=== PATIENT | male | born 1980 | race Caucasian/White ===

== ENCOUNTER → 2017-04-02 10:36 | Outpatient (CLI) | payer MEDICARE | END | disposition home or self-care (01) | LOC: D.MRI 04-01 11:00 → D.CT 04-01 11:30 → D.RAD 04-01 13:00 → D.MRI 10:36 | DX: G93.2 Benign intracranial hypertension (principal); I87.1 Compression of vein; R13.10 Dysphagia, unspecified ==

== ENCOUNTER 2018-04-30 17:12 | Inpatient (IN) | payer MEDICARE ==
[~2018-04-30] VITALS: Ht 182.9 cm; Wt 79.3 kg
--- NOTE | ~2018-04-30 | CN ---
PATIENT NAME:RETA BLUM MEDICAL RECORD: [id number] : 84 LOCATION:[facility].2308 ADMIT DATE: 04/30/18 ACCOUNT: [id number] CONSULTING PHYSICIAN: PETAR BRICENO MD REFERRING PHYSICIAN: JOSE BAXTER MD DATE OF CONSULTATION: 05/01/2018 IDENTIFYING DATA: The patient is 37 years old and he presented to the hospital with polysubstance overdose including OxyContin, Xanax, and methadone. He currently is intubated. I will return tomorrow or the day once he is extubated, and awake and alert enough to speak with me. Given the circumstances, I suspect he is going to require some sort of treatment on an inpatient basis when he leaves here. It is unclear if it needs to be substance abuse and/or mental health. I will evaluate the patient once he is extubated and alert and awake enough for me to evaluate him. TRANSINT:[id number] Voice Confirmation ID: [id number] DOCUMENT ID: [id number] PETAR BRICENO MD at 0926 CC: [id number] DICTATION DATE: 05/01/18 1143 ATOMIC WELDER: 05/01/18 1150 ADM IN [facility] [address] [place] [address]
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
--- NOTE | ~2018-04-30 | MORECARE ---
CASE MANAGEMENT DISCHARGE SUMMARY PATIENT: RETA BLUM UNIT: [id number] ADM DATE: 04/30/18 AGE: 37 : [birth year] SEX: M ROOM/BED: D.2308 AUTHOR: CATHERINE LAWTON PHYSICIAN: REFERRING PHYSICIAN: JOSE BAXTER MD DATE OF SERVICE: 05/05/18 Discharge Plan Patient Name: RETA BLUM Facility: [facility]:[place] : 1980 Planned Disposition: Anticipated Discharge Date: Discharge Date: 05/04/2018 Expected LOS: Initial Reviewer: [email or web address] Initial Review Date: 04/30/2018 Generated: 05/05/18 4:39 pm Comments DCP- Discharge Planning Updated by [email or web address]: Nu Shaw on 05/04/18 10:[address] Patient Name: RETA BLUM Admission Status: ER Accout number: [id number] Admission Date: 04-30-2018 : 1980 Admission Diagnosis: Attending: JOSE BAXTER Current LOS: 4 Anticipated DC Date: Planned Disposition: Primary Insurance: MEDICARE A & B Discharge Planning Comments: CM notified that patient was medically stable for inpatient psychiatric facility. CM spoke with patient regarding transfer to inpatient psychiatric facility. He agrees to go to inpatient facility. CM contacted transfer center for placement and faxed over packet. CM will continue to follow and assist with patient discharge planning / needs. Adapted Physical Education Specialist: Nu Shaw Last DP export: 05/04/18 10:26 Patient Name: RETA BLUM Page [id number] at 1539 All edits/amendments must be made on the electronic document DICTATION DATE: 05/05/18 1539 CRIME SPECIALIST: ANGE 05/05/18 1539 RPT#: [id number] DC DATE:05/04/18 STATUS: DIS IN [facility] [address] [place] [address] END OF REPORT
--- NOTE | ~2018-04-30 | CN ---
PATIENT NAME:RETA MOROCHO MEDICAL RECORD: [id number] : 84 LOCATION:[facility].2308 ADMIT DATE: 04/30/18 ACCOUNT: [id number] CONSULTING PHYSICIAN: EMILIE FIGUEROA MD REFERRING PHYSICIAN: MISTY BAXTER MD DATE OF CONSULTATION: 05/01/2018 CONSULT REQUESTING PHYSICIAN: Misty Baxter MD REASON FOR CONSULTATION: Vent management. HISTORY OF PRESENT ILLNESS: Mr. Morocho is a 37-year-old gentleman, now he is orally intubated and sedated. The patient has taken multidrug overdose. He was given multiple doses of Narcan almost up to 3.4 mg, but the patient was still obtunded, and the patient was electively intubated in the ER for airway protection. REVIEW OF SYSTEMS: As in history of present illness. PAST MEDICAL HISTORY: 1. Yosi-Danlos syndrome. 2. Chronic pain syndrome. 3. Anxiety, depression. 4. Migraine headache. ALLERGIES: No allergy information available. MEDICATIONS: [employer] Analysis is reviewed. PERSONAL AND SOCIAL HISTORY: The detail is not obtainable. FAMILY HISTORY: Not obtainable. PHYSICAL EXAMINATION: GENERAL: Now the patient is orally intubated and sedated. VITAL SIGNS: The blood pressure is 102/68, pulse is 58, respiration 14, temperature 98. SpO2 of 97% on assist control mechanical ventilation, FIO2 of 30, rate of 14. HEENT: Conjunctivae are pink. Sclerae not icteric. NECK: Supple. No JVD. CHEST: The chest excursion is minimal on both sides. There is no wheeze, no rales. HEART: Rhythm regular, normal sound, no murmur. ABDOMEN: Abdomen is soft. Bowel sounds present. No hepatosplenomegaly. RECTAL: Deferred. EXTREMITIES: No cyanosis, no clubbing, no pedal edema. SKIN: The skin is warm, normal turgor. CENTRAL NERVOUS SYSTEM: The patient is orally intubated and sedated. CHEST RADIOGRAPH: The ET tube is in good position. There is no infiltrate. OTHER LABORATORY DATA: CBC: The WBC is 6.8, hemoglobin 11.6, hematocrit 35.1, the platelet count is 185. Chemistry: Sodium 144, potassium 3.6, bicarb is 21.8, BUN is 12, creatinine 0.9. ABG: The pH is 7.39, pCO2 is 44.2, the pO2 was 42. This was done on assist control, rate of 14, PEEP of 5, tidal volume CONSULT REPORT [id number] RETA MOROCHO 600, and 50% oxygen. IMPRESSION: 1. Acute respiratory failure. 2. Multidrug overdose. 3. Suicidal attempt. 4. Depression. 5. History of chronic pain. 6. History of Yosi-Danlos syndrome. RECOMMENDATION: 1. We will continue mechanical ventilation. 2. Adjust the setting. 3. DVT and GI bleed, ulcer prevention. 4. Follow up labs and chest radiograph to watch for any VAP or aspiration pneumonia. 5. Psychiatric consult. We will extubate when the patient is stable. Dr. Baxter, thank you for involving me in the care of Mr. Morocho. TRANSINT:[id number] Voice Confirmation ID: [id number] DOCUMENT ID: [id number] EMILIE FIGUEROA MD CC: [id number] DICTATION DATE: 05/01/18 1223 REGROOVER: 05/01/18 1250 ADM IN [place] [id number] [place] [id number]
--- NOTE | ~2018-04-30 | MORECARE ---
CASE MANAGEMENT DISCHARGE SUMMARY PATIENT: RETA BLUM UNIT: [id number] ADM DATE: 04/30/18 AGE: 37 : 84 SEX: M ROOM/BED: D.2308 AUTHOR: CATHERINE LAWTON PHYSICIAN: REFERRING PHYSICIAN: JOSE BAXTER MD DATE OF SERVICE: 05/04/18 Discharge Plan Patient Name: RETA BLUM Facility: [facility]:[place] : 1980 Planned Disposition: Anticipated Discharge Date: Discharge Date: Expected LOS: Initial Reviewer: [email or web address] Initial Review Date: 04/30/2018 Generated: 05/04/18 12:25 pm Comments DCP- Discharge Planning Updated by [email or web address]: Nu Shaw on 05/04/18 10:[address] Patient Name: RETA BLUM Admission Status: ER Accout number: [id number] Admission Date: 04-30-2018 : 1980 Admission Diagnosis: Attending: JOSE BAXTER Current LOS: 4 Anticipated DC Date: Planned Disposition: Primary Insurance: MEDICARE A & B Discharge Planning Comments: CM notified that patient was medically stable for inpatient psychiatric facility. CM spoke with patient regarding transfer to inpatient psychiatric facility. He agrees to go to inpatient facility. CM contacted transfer center for placement and faxed over packet. CM will continue to follow and assist with patient discharge planning / needs. Inspector Hot Forgings: Nu Shaw External Providers External Provider: [facility] Next Contact Date: Service Request Date: Service Type: Resolution: Reviewer: Comments: Patient Name: RETA BLUM Page [phone] at 1126 All edits/amendments must be made on the electronic document DICTATION DATE: 05/04/18 112 STATISTICAL SECRETARY: ANGE 05/04/18 112 RPT#: [id number] DC DATE: STATUS: ADM IN [facility] [address] [place] [address] END OF REPORT
[2018-04-30] MEDS ORDERED: REMERON30 MG PO (17:16)
[2018-04-30] MEDS ORDERED: BUTRANS1 EAC2 TRANSDERM (17:17)
[2018-04-30] MEDS ORDERED: TRINTELLIX20 MG PO (17:18)
[2018-04-30] MEDS ORDERED: ZOFRAN8 MG PO (17:18)
[2018-04-30] MEDS ORDERED: ROXICODONE15 MG PO (17:19)
[2018-04-30] MEDS ORDERED: XANAX1 MG PO (17:30)
[2018-04-30] MEDS ORDERED: BACLOFEN20 M1 PO (17:32)
[2018-04-30] MEDS ORDERED: CLARITIN 10 MG10 MG PO (17:32)
[2018-04-30 18:09] LABS: BASOPHILS 0.3 % (0-2); EOSINOPHILS 0.9 % (0-7); HEMOGLOBIN 13.3 g/dL (13.5-17.5); IMMATURE GRANULOCYTES 0.2 % (0-5); LYMPHOCYTES 31.4 % (15-50); MCH 30.6 pg (26.0-34.0); MCHC 33.3 g/dL (31.0-37.0); MEAN PLATELET VOLUME 10.7 fL (7.4-10.4); MONOCYTES 6.4 % (2-11); NEUTROPHILS 60.8 % (40-80); PLATELET COUNT 213 10x3/uL (130-400); RBC 4.35 10x6/uL (4.20-6.10); RDW 14.1 % (11.5-14.5); WBC 9.6 10x3/uL (4.8-10.8)
[2018-04-30 18:34] LABS: APPEARANCE CLEAR (CLEAR); COLOR YELLOW (YELLOW); SPECIFIC GRAVITY 1.005 (1.005-1.020)
[2018-04-30 18:35] LABS: BILIRUBIN NEGATIVE (NEGATIVE); GLUCOSE NEGATIVE (NEGATIVE); KETONE NEGATIVE (NEGATIVE); NITRITE NEGATIVE (NEGATIVE); PROTEIN NEGATIVE (NEGATIVE); UROBILINOGEN NORMAL (NORMAL)
[2018-04-30 18:49] LABS: UDS - AMPHET NEGATIVE QUAL (NEGATIVE); UDS - BARB NEGATIVE QUAL (NEGATIVE); UDS - BENZO POSITIVE QUAL (NEGATIVE); UDS - COCAINE NEGATIVE QUAL (NEGATIVE); UDS - OPIATE POSITIVE QUAL (NEGATIVE); UDS - PCP NEGATIVE QUAL (NEGATIVE); UDS - THC NEGATIVE QUAL (NEGATIVE)
[2018-04-30 18:50] LABS: ALBUMIN 3.5 g/dL (3.4-5.0); ALKALINE PHOSPHATASE 121 U/L (46-116); ALT (SGPT) 27 U/L (10-68); BILIRUBIN - TOTAL 0.33 mg/dL (0.2-1.3); CALC OSMOLALITY 282 mosm/kg (275-300); CALCIUM 8.5 mg/dL (8.5-10.1); CARBON DIOXIDE 29.7 mmol/L (21.0-32.0); CHLORIDE - SERUM 106 mmol/L (98-107); CREATININE - SERUM 1.2 mg/dL (0.6-1.3); GLUCOSE 90 mg/dL (74-106); POTASSIUM - SERUM 3.9 mmol/L (3.5-5.1); PROTEIN - SERUM 7.1 g/dL (6.4-8.2); SODIUM 142 mmol/L (136-145); UREA NITROGEN 13 mg/dL (7-18); eGFR NON AFRICAN AMERICAN 73 mL/min (90-120)
[2018-04-30 19:00] VITALS: BP 96/58
[2018-04-30 19:03] LABS: CKMB 1.2 U/L (0.0-3.6); CREATINE KINASE 97 UL (21-232); MAGNESIUM - SERUM 2.3 mg/dL (1.8-2.4)
[2018-04-30 19:08] LABS: TROPONIN-I < 0.017 ng/mL (0.000-0.060)
[2018-04-30 21:00] VITALS: BP 91/60
[2018-04-30 21:01] VITALS: BP 138/94; BMI 23.2
[2018-04-30 22:00] VITALS: BP 89/58
[2018-04-30 23:00] VITALS: BP 92/63
[2018-05-01] VITALS (23 sets, daily range): BP systolic 88–135; BP diastolic 58–95; BMI 22.9
[2018-05-01 03:16] LABS: BASOPHILS 0.3 % (0-2); EOSINOPHILS 1.2 % (0-7); HEMATOCRIT 35.1 % (42.0-54.0); HEMOGLOBIN 11.6 g/dL (13.5-17.5); IMMATURE GRANULOCYTES 0.1 % (0-5); LYMPHOCYTES 41.3 % (15-50); MCH 30.1 pg (26.0-34.0); MCV 91.2 fL (80.0-100.0); MEAN PLATELET VOLUME 10.4 fL (7.4-10.4); MONOCYTES 7.2 % (2-11); NEUTROPHILS 49.9 % (40-80); PLATELET COUNT 185 10x3/uL (130-400); RBC 3.85 10x6/uL (4.20-6.10); RDW 14.6 % (11.5-14.5)
[2018-05-01 03:17] LABS: WBC 6.8 10x3/uL (4.8-10.8)
[2018-05-01 03:47] LABS: ALBUMIN 2.9 g/dL (3.4-5.0); ALKALINE PHOSPHATASE 97 U/L (46-116); BILIRUBIN - TOTAL 0.37 mg/dL (0.2-1.3); CALC OSMOLALITY 285 mosm/kg (275-300); CALCIUM 8.5 mg/dL (8.5-10.1); CHLORIDE - SERUM 110 mmol/L (98-107); CREATININE - SERUM 0.9 mg/dL (0.6-1.3); GLUCOSE 86 mg/dL (74-106); POTASSIUM - SERUM 3.6 mmol/L (3.5-5.1); PROTEIN - SERUM 5.8 g/dL (6.4-8.2); SODIUM 144 mmol/L (136-145); UREA NITROGEN 12 mg/dL (7-18); eGFR NON AFRICAN AMERICAN > 90 mL/min (90-120)
[2018-05-01 03:48] LABS: ALT (SGPT) 20 U/L (10-68); CARBON DIOXIDE 21.8 mmol/L (21.0-32.0)
[2018-05-02] VITALS (24 sets, daily range): BP systolic 111–154; BP diastolic 72–101; Ht 182.9 cm; Wt 79.3 kg
[2018-05-02 03:14] LABS: BASOPHILS 0.1 % (0-2); EOSINOPHILS 1.1 % (0-7); HEMATOCRIT 35.5 % (42.0-54.0); HEMOGLOBIN 11.8 g/dL (13.5-17.5); IMMATURE GRANULOCYTES 0.2 % (0-5); LYMPHOCYTES 19.5 % (15-50); MCH 30.3 pg (26.0-34.0); MCHC 33.2 g/dL (31.0-37.0); MCV 91.3 fL (80.0-100.0); MEAN PLATELET VOLUME 10.9 fL (7.4-10.4); MONOCYTES 8.4 % (2-11); NEUTROPHILS 70.7 % (40-80); PLATELET COUNT 167 10x3/uL (130-400); RBC 3.89 10x6/uL (4.20-6.10); RDW 15.1 % (11.5-14.5)
[2018-05-02 03:18] LABS: WBC 8.8 10x3/uL (4.8-10.8)
[2018-05-02 03:22] LABS: CALC OSMOLALITY 284 mosm/kg (275-300); CARBON DIOXIDE 22.1 mmol/L (21.0-32.0); CHLORIDE - SERUM 110 mmol/L (98-107); GLUCOSE 83 mg/dL (74-106); MAGNESIUM - SERUM 1.9 mg/dL (1.8-2.4); POTASSIUM - SERUM 3.7 mmol/L (3.5-5.1); SODIUM 143 mmol/L (136-145); UREA NITROGEN 14 mg/dL (7-18); eGFR NON AFRICAN AMERICAN 90 mL/min (90-120)
[2018-05-03] VITALS (21 sets, daily range): BP systolic 137–167; BP diastolic 80–113
[2018-05-03 03:40] LABS: BASOPHILS 0.1 % (0-2); EOSINOPHILS 0.1 % (0-7); HEMATOCRIT 37.3 % (42.0-54.0); HEMOGLOBIN 12.8 g/dL (13.5-17.5); IMMATURE GRANULOCYTES 0.3 % (0-5); LYMPHOCYTES 9.9 % (15-50); MCH 31.1 pg (26.0-34.0); MCHC 34.3 g/dL (31.0-37.0); MCV 90.5 fL (80.0-100.0); MEAN PLATELET VOLUME 10.9 fL (7.4-10.4); MONOCYTES 5.5 % (2-11); NEUTROPHILS 84.1 % (40-80); PLATELET COUNT 163 10x3/uL (130-400); RBC 4.12 10x6/uL (4.20-6.10); RDW 14.7 % (11.5-14.5)
[2018-05-03 03:44] LABS: WBC 14.1 10x3/uL (4.8-10.8)
[2018-05-03 03:45] LABS: CALC OSMOLALITY 284 mosm/kg (275-300); CALCIUM 8.6 mg/dL (8.5-10.1); CARBON DIOXIDE 23.8 mmol/L (21.0-32.0); CHLORIDE - SERUM 107 mmol/L (98-107); CREATININE - SERUM 0.9 mg/dL (0.6-1.3); GLUCOSE 130 mg/dL (74-106); POTASSIUM - SERUM 3.3 mmol/L (3.5-5.1); SODIUM 143 mmol/L (136-145); UREA NITROGEN 7 mg/dL (7-18); eGFR NON AFRICAN AMERICAN > 90 mL/min (90-120)
[2018-05-04] VITALS (11 sets, daily range): BP systolic 151–160; BP diastolic 80–112
[2018-05-04 05:01] LABS: BASOPHILS 0.1 % (0-2); EOSINOPHILS 0.1 % (0-7); HEMOGLOBIN 12.3 g/dL (13.5-17.5); IMMATURE GRANULOCYTES 0.3 % (0-5); LYMPHOCYTES 9.8 % (15-50); MCH 30.5 pg (26.0-34.0); MCHC 34.2 g/dL (31.0-37.0); MCV 89.3 fL (80.0-100.0); MEAN PLATELET VOLUME 11.1 fL (7.4-10.4); NEUTROPHILS 84.7 % (40-80); RBC 4.03 10x6/uL (4.20-6.10); RDW 14.5 % (11.5-14.5); WBC 13.9 10x3/uL (4.8-10.8)
[2018-05-04 05:05] LABS: PLATELET COUNT 210 10x3/uL (130-400)
[2018-05-04 05:18] LABS: CALC OSMOLALITY 279 mosm/kg (275-300); CALCIUM 9.1 mg/dL (8.5-10.1); CARBON DIOXIDE 26.7 mmol/L (21.0-32.0); CHLORIDE - SERUM 103 mmol/L (98-107); CREATININE - SERUM 0.7 mg/dL (0.6-1.3); GLUCOSE 114 mg/dL (74-106); MAGNESIUM - SERUM 1.9 mg/dL (1.8-2.4); POTASSIUM - SERUM 3.9 mmol/L (3.5-5.1); SODIUM 141 mmol/L (136-145); UREA NITROGEN 6 mg/dL (7-18); eGFR NON AFRICAN AMERICAN > 90 mL/min (90-120)
== END 2018-05-04 19:25 | disposition short-term general hospital (02) | DRG 917 ==
LOC: D.ER 17:12 → D.ICU 19:32 → D.EDHOLD 19:32 → D.ICU 19:32
PROVIDERS: Family Medicine; Internal Medicine Pulmonary Disease
PROC: 5A1945Z Respiratory Ventilation, 24-96 Consecutive Hours (ICD-10-PCS; principal; 2018-04-30)
PROC: 0BH17EZ Insertion of Endotracheal Airway into Trachea, Via Natural or Artificial Opening (ICD-10-PCS; 2018-04-30)
DX: T40.2X2A Poisoning by other opioids, intentional self-harm, initial encounter (principal); J96.01 Acute respiratory failure with hypoxia; J96.02 Acute respiratory failure with hypercapnia; G92 Toxic encephalopathy; Q79.6 Ehlers-Danlos syndromes; F11.23 Opioid dependence with withdrawal; T42.4X2A Poisoning by benzodiazepines, intentional self-harm, initial encounter; T40.3X2A Poisoning by methadone, intentional self-harm, initial encounter; F43.10 Post-traumatic stress disorder, unspecified; F41.8 Other specified anxiety disorders; R00.0 Tachycardia, unspecified